=== PATIENT | male | born 2000 | race Hispanic/Latino ===

== ENCOUNTER 2022-05-09 07:44 | Emergency (ER) | payer OTHER, SELFPAY ==
[2022-05-09] MEDS ORDERED: Ibuprofen 800 MG TAB ONE (08:12)
[2022-05-09] MEDS ORDERED: Amoxicillin/Potassium Clav 875 MG TAB ONE (08:12)
== END 2022-05-09 08:21 | disposition home or self-care (01) ==
LOC: NAV ERS 07:44
DX: K04.7 Periapical abscess without sinus (principal); K02.9 Dental caries, unspecified; F17.210 Nicotine dependence, cigarettes, uncomplicated
CPT/HCPCS: 99283

== ENCOUNTER 2023-11-15 16:23 | Emergency (ER) | payer OTHER ==
[2023-11-15 16:55] LABS: Bilirubin Negative (Negative); Blood, Urine Trace (Negative); Clarity Clear (Clear); Glucose, Urine (Dipstick) Negative (Negative); Ketone, Urine Negative (Negative); Leukocyte Negative (Negative); Nitrite Negative (Negative); Protein, Urine (Dipstick) Negative (Neg-Trace); Urobilinogen 0.2 mg/dL (Less than 2)
[2023-11-15 17:00] LABS: Urine Culture Reflex No No
[2023-11-15 17:02] LABS: RBC/HPF 0-3 HPF (0-3); Squamous Epithelial 0-3 HPF (0-3)
[2023-11-15] MEDS ORDERED: Sodium Chloride 0.9% 1,000 ML ONE (17:03)
[2023-11-15] MEDS ORDERED: Ketorolac Tromethamine 30 MG (1 mL) VIAL ONE (17:03)
[2023-11-15] MEDS ORDERED: Ondansetron PF 4 MG/2 ML Vial ONE (17:49)
[2023-11-15] MEDS ORDERED: Morphine 4 MG/ML VIAL ONE (17:49)
[2023-11-15] MEDS ORDERED: Tamsulosin HCl 0.4 MG CAP ONE (19:10)
== END 2023-11-15 19:27 | disposition home or self-care (01) ==
LOC: NAV ERS 16:23
DX: N20.1 Calculus of ureter (principal); F17.210 Nicotine dependence, cigarettes, uncomplicated
CPT/HCPCS: 74176; 81001; 96361; 96374; 96375; J1885; J2270; J2405; J7050